=== PATIENT | male | born 1965 | race Caucasian/White ===

== ENCOUNTER 2018-10-20 17:38 | Emergency (ER) | payer OTHER ==
[2018-10-20 18:01] VITALS: BP 135/83; PULSE 111; TEMP 98.3; BMI 28.1
--- NOTE | 2018-10-20 18:08 | PDOC ---
Rapid Medical Evaluation Time Seen by Provider: 10/20/18 17:58 Medical Evaluation: Allergies Allergy/AdvReac Type Severity Reaction Status Date / Time No Known Allergies Allergy Verified 10/20/18 17:56 10/20/18 17:58 I have performed a brief in-person evaluation of this patient. The patient presents with a chief complaint of: SOB w/ ? AMS and nausea while working for hrs in the sun today. Feels better now that he is not in the sun. H /o HTN, angina Pertinent physical exam findings:Stable and well krisitn I have ordered the following:ekg/labs The patient will proceed to the ED for further evaluation. Discharge Disposition - Diagnosis Fatigue Qualifiers: Fatigue type: other Qualified Code(s): R53.83 - Other fatigue - Referrals - Patient Instructions - Post Discharge Activity
--- NOTE | 2018-10-20 19:53 | PDOC ---
Documentation entered by Luca Thompson SCRIBE, acting as scribe for Nic Castro MD. Nic Castro MD: This documentation has been prepared by the Donna ybarra Elijah, SCRIBE, under my direction and personally reviewed by me in its entirety. I confirm that the documentation accurately reflects all work, treatment, procedures, and medical decision making performed by me. History of Present Illness - General Chief Complaint: Lightheaded Stated Complaint: PALPITATIONS Time Seen by Provider: 10/20/18 17:58 History Source: Patient Exam Limitations: No Limitations - History of Present Illness Initial Comments: 10/20/18 18:47 Patient is a 53 year old male with a significant medical history of HTN and Angina? Who presents to the ED with SOB and chest tightness. Patient reports that he works outside and while doing so his symptoms began to onset. Patient then decided to go inside the truck with A/c and he began to feel lightheaded, couldn't think of words while speaking and felt tingling in his fingertips. Patient went home and felt some dizziness upon movement and said when he took his pump for asthma it offered brief relief. At this time patient only has an intermittent headache but wanted to make sure everything was okay. Patient also notes he switched to a water pill a week ago. Allergies: NKA PCP. Dr. Godwin NIH Stroke Scale - Last Known Well Date/Time & Onset Date Last Known Well: 10/20/18 - Initial Evaluation Level of consciousness: Alert Ask patient the month and their age: Answers both correctly Ask patient to open & close eyes; make fist and let go: Obeys both correctly Best gaze (horizontal eye movement): Normal Visual field testing: No visual field loss Facial paresis (Show teeth/raise eyebrows/close eyes tight): Normal symmetrical movement Motor Function: Left Arm: Normal Motor Function: Right Arm: Normal (extends arm 90 (or 45) degrees for 10 seconds without drift Motor Function: Left Leg: Normal (extends leg 30 degrees for 5 seconds without drift) Motor Function: Right Leg: Normal (extends leg 30 degrees for 5 seconds without drift) Limb Ataxia: No ataxia Sensory(Use pinprick test arms,legs,trunk,face/side to side): Normal Best language (Describe picture, name items, read sentences): No Aphasia Dysarthria (read several words): Normal articulation Extinction and Inattention: No abnormality - Total Score NIH Stroke Scale Score: 0 Past History - Past Medical History Allergies/Adverse Reactions: Allergies Allergy/AdvReac Type Severity Reaction Status Date / Time No Known Allergies Allergy Verified 10/20/18 17:56 Cardiac Disorders: Yes (ANGINA) COPD: No HTN: Yes Hypercholesterolemia: Yes - Immunization History Immunization Up to Date: Yes - Suicide/Smoking/Psychosocial Hx Smoking History: Never smoked Hx Alcohol Use: No Drug/Substance Use Hx: No Review of Systems - Review of Systems Comments:: 10/20/18 18:48 GENERAL/CONSTITUTIONAL: +Lightheadedness No fever or chills. HEAD, EYES, EARS, NOSE AND THROAT: No change in vision. No ear pain or discharge. No sore throat. CARDIOVASCULAR: +chest tightness +shortness of breath. RESPIRATORY: No cough, wheezing, or hemoptysis. GASTROINTESTINAL: No nausea, vomiting, diarrhea or constipation. GENITOURINARY: No dysuria, frequency, or change in urination. MUSCULOSKELETAL: No joint or muscle swelling or pain. No neck or back pain. SKIN: No rash NEUROLOGIC: +headache +Tingling in Hands. +Struggling to think of proper word. No vertigo, loss of consciousness ENDOCRINE: No increased thirst. No abnormal weight change. HEMATOLOGIC/LYMPHATIC: No anemia, easy bleeding, or history of blood clots. ALLERGIC/IMMUNOLOGIC: No hives or skin allergy. *Physical Exam - Vital Signs Last Vital Signs Temp Pulse Resp BP Pulse Ox 98.3 F 111 H 18 135/83 97 10/20/18 17:56 10/20/18 17:56 10/20/18 17:56 10/20/18 17:56 10/20/18 17:56 - Physical Exam Comments: 10/20/18 19:35 GENERAL: Awake, alert, and fully oriented, in no acute distress HEAD: No signs of trauma EYES EOMI, sclera anicteric, conjunctiva clear ENT: Auricles normal inspection, hearing grossly normal, nares patent,Moist mucosa NECK: Normal ROM, supple, LUNGS: Breath sounds equal, clear to auscultation bilaterally. No wheezes, and no crackles HEART: Regular rate and rhythm, normal S1 and S2, no murmurs, rubs or gallops ABDOMEN: Soft, nontender, No guarding, no rebound. No masses EXTREMITIES: Normal range of motion, no edema. No clubbing or cyanosis. No cords, erythema, or tenderness NEUROLOGICAL: Cranial nerves II through XII intact. Normal speech, normal gait. 5/5 strength upper and lower extremities. Sensation intact throughout. No dysmetria. No rapid alternative movement abnormality. No pronator drift. SKIN: Warm, Dry, normal turgor, no rashes or lesions noted. Heart Score/ECG Review #1 ECG reviewed & interpreted by me at: 17:40 10/20/18 20:01 NSR 99, no std/yana, LVH, QTC 513 msec, no std/yana, no brugada, no HOCM, no WPW ED Treatment Course - LABORATORY CBC & Chemistry Diagram: 10/20/18 19:55 10/20/18 19:55 - RADIOLOGY Radiology Studies Ordered: Category Date Time Status HEAD CT WITHOUT CONTRAST [CT] Stat CT Scan 10/20/18 18:37 Ordered CHEST PA & LAT [RAD] Stat Radiology 10/20/18 18:37 Ordered Medical Decision Making - Medical Decision Making 10/20/18 19:36 A portion of this note was documented by scribe services under my direction. I have reviewed the details of the note, within reason, and agree with the documentation with the following case summary and management plan written by me. Patient treated in the ED. Nursing notes are reviewed and incorporated into the medical decision-making. Vital signs reviewed. Peripheral IV access obtained by the nurse, laboratory studies are drawn and sent, reviewed and interpreted by myself. Vital Signs Temp Pulse Resp BP Pulse Ox 98.3 F 111 H 18 135/83 97 10/20/18 17:56 10/20/18 17:56 10/20/18 17:56 10/20/18 17:56 10/20/18 17:56 53-year-old male with history of hypertension and possible angina history presents with lightheadedness today. The patient reports that he was outdoors all today and the heat wave. Patient stated that he has not been taking plenty of fluids but noted that the longer he stayed outdoors, the patient became more lightheaded. Denied chest pain but started to feel somewhat feeling like he can' t catch a full breath. Denies shortness of breath and dyspnea on exertion. 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 Patient felt like he was stumbling over his words and felt some paresthesias along his fingertips and his toes bilaterally. Never endorse one- sided weakness. The patient initially thought that this may have been secondary to dehydration but his partner thought maybe he was having a stroke. Patient came the ED for evaluation. At this time, I suspect the patient may be dehydrated with a mild heat exhaustion. The patient's temperature is normal here but his pulses 111 which I suspect is secondary dehydration. We'll obtain a head CT though the patient's neuro exam is normal. Though the patient does have some risk for TIA, the patient's presentation seems to be more consistent with dehydration and heat exhaustion. The patient has a normal chest and lung exam. Patient's EKG demonstrates no acute ST changes but notable for QTC at 513 ms. We'll obtain labs including troponin and observe. Give patient IV hydration. reassess. 10/20/18 21:23 CT head reviewed. No acute findings. 10/20/18 21:31 CBC, BMP 10/20/18 19:55 10/20/18 19:55 CMP Sodium 136 mmol/L (136-145) 10/20/18 19:55 Potassium 3.7 mmol/L (3.5-5.1) 10/20/18 19:55 Chloride 98 mmol/L (98-107) 10/20/18 19:55 Carbon Dioxide 29 mmol/L (21-32) 10/20/18 19:55 Anion Gap 9 MMOL/L (8-16) 10/20/18 19:55 BUN 30.8 mg/dL (7-18) H 10/20/18 19:55 Creatinine 1.2 mg/dL (0.55-1.3) 10/20/18 19:55 Est GFR (CKD-EPI)AfAm 80.66 10/20/18 19:55 Est GFR (CKD-EPI)NonAf 69.59 10/20/18 19:55 Random Glucose 105 mg/dL (74-106) 10/20/18 19:55 Calcium 9.4 mg/dL (8.5-10.1) 10/20/18 19:55 Magnesium 2.5 mg/dL (1.8-2.4) H 10/20/18 19:55 Total Bilirubin 0.8 mg/dL (0.2-1) 10/20/18 19:55 AST 23 U/L (15-37) 10/20/18 19:55 ALT 33 U/L (13-61) 10/20/18 19:55 Alkaline Phosphatase 56 U/L (45-117) 10/20/18 19:55 Creatine Kinase 464 U/L (26-308) H 10/20/18 19:55 Creatine Kinase Index 0.8 % (0.0-5.0) 10/20/18 19:55 CK-MB (CK-2) 3.8 ng/mL (0.5-3.6) H 10/20/18 19:55 Troponin I < 0.02 ng/ml (0.00-0.05) 10/20/18 19:55 Total Protein 8.1 g/dl (6.4-8.2) 10/20/18 19:55 Albumin 4.4 g/dl (3.4-5.0) 10/20/18 19:55 The workup shows a BUN/creatinine ratio 30:1 suggesting dehydration. Patient feels much better after IV hydration. CAT scan demonstrates no acute findings. At this time, I suspect this is likely secondary to dehydration from heat exhaustion. The patient is ambulatory and feeling well. However, the patient noted to have a prolonged QT on the EKG. At this time, I do not suspect that the patient syncope or cardiac etiology at this moment. I did advise the patient that he bring a copy EKG to his doctor for followup. Patient verbalizes understanding agrees with plan. The patient will go home with his family. I discussed the physical exam findings, ancillary test results and final diagnoses with the patient. I answered all of the patient's questions. The patient was satisfied with the care received and felt comfortable with the discharge plan and treatment plan. The patient will call their primary care physician within 24 hours to arrange follow-up and will return to the Emergency Department with any new, persistant or worsening symptoms. *DC/Admit/Observation/Transfer Diagnosis at time of Disposition: Dehydration Fatigue Qualifiers: Fatigue type: other Qualified Code(s): R53.83 - Other fatigue - Discharge Dispostion Disposition: HOME Condition at time of disposition: Improved Decision to Admit order: No - Referrals Referrals: Angela Godwin [Primary Care Provider] - - Patient Instructions Printed Discharge Instructions: DI for Dehydration -- Adult Additional Instructions: Your blood work shows no acute findings. However, your EKG shows a prolonged QTc. At this time, please call your doctor and bring a copy of the EKG to your doctor. This may need review by your doctors. You likely have had dehydration. It is important that you drink plenty of fluids and rest. If you ever feel very weak and lightheaded, please return to the ER. - Post Discharge Activity
[2018-10-20 20:10] LABS: BASO % 0.3 % (0-2.0); EOS % 0.1 % (0-4.5); HEMATOCRIT 47.8 % (35.4-49); HEMOGLOBIN 16.1 GM/dL (11.7-16.9); LYMPH % 12.7 % (8-40); MCH 30.9 pg (25.7-33.7); MCHC 33.6 g/dl (32.0-35.9); MEAN CELL VOLUME 91.8 fl (80-96); MEAN PLT VOLUME 9.8 fl (7.5-11.1); MONO % 4.2 % (3.8-10.2); NEUT % 82.7 % (42.8-82.8); PLATELET COUNT 206 K/MM3 (134-434); RBC 5.21 M/mm3 (4.00-5.60); RDW 13.6 % (11.9-15.9); WHITE BLOOD COUNT 10.8 K/mm3 (4.0-10.0)
[2018-10-20 20:55] LABS: ALBUMIN 4.4 g/dl (3.4-5.0); BILIRUBIN,TOTAL 0.8 mg/dL (0.2-1); BLOOD UREA NITROGEN 30.8 mg/dL (7-18); CALCIUM 9.4 mg/dL (8.5-10.1); CREATININE 1.2 mg/dL (0.55-1.3); MAGNESIUM 2.5 mg/dL (1.8-2.4); POTASSIUM 3.7 mmol/L (3.5-5.1); TOT PROT 8.1 g/dl (6.4-8.2)
--- NOTE | 2018-10-22 00:08 | EKG ---
Test Reason : Blood Pressure : / mmHG Vent. Rate : 099 BPM Atrial Rate : 099 BPM P-R Int : 128 ms QRS Dur : 092 ms QT Int : 400 ms P-R-T Axes : 061 073 063 degrees QTc Int : 513 ms NORMAL SINUS RHYTHM POSSIBLE LEFT ATRIAL ENLARGEMENT LEFT VENTRICULAR HYPERTROPHY PROLONGED QT ABNORMAL ECG NO PREVIOUS ECGS AVAILABLE Confirmed by STEFANY UGARTE MD ([id number]) on 10/22/2018 12:07:57 AM Referred By: Confirmed By:STEFANY UGARTE MD
== END 2018-10-20 21:49 | disposition home or self-care (01) ==
LOC: JER 17:38
DX: E86.0 Dehydration (principal)
CPT/HCPCS: 36415; 70450-TC; 80053; 82550; 82553; 83735; 84484; 85025; 93005; 93010; 99282-25